=== PATIENT | female | born 1950 | race Caucasian/White ===

== ENCOUNTER → 2017-10-29 | Outpatient (CLI) | payer MEDICARE, OTHER ==
[~2017-10-29] MED LIST: Betamethasone D30 ML EXT; TIMO10T BOTHEYES
[2017-10-29 16:29] LABS: Appearance, Urine Clear (Clear); Bilirubin, Urine Neg (Neg); Blood, Urine 1+ (Neg); Color, Urine Yellow (P-Yellow); Glucose Qualitative, Urine Neg (Neg); Ketones, Urine Neg (Neg); Leukocyte Esterase, Urine Neg (Neg); Nitrite, Urine Neg (Neg); Protein, Urine Neg (Neg); Specific Gravity, Urine 1.015 (1.003-1.022); Urobilinogen, Urine NORM (Normal); pH, Urine 6.5 (5.0-8.0)
[2017-10-29 17:07] LABS: Bacteria Not Seen /hpf; Red Blood Cells, Urine Not Seen /hpf (0-2); Squamous Epithelial Cells Not Seen /hpf (Few); White Blood Cells, Urine Not Seen /hpf (0-5)
== END ==
LOC: LAB 16:20
PROVIDERS: Nurse Practitioner Family
DX: N39.0 Urinary tract infection, site not specified (principal)
CPT/HCPCS: 81001

== ENCOUNTER 2017-11-04 10:08 | Day surgery (SDC) | payer MEDICARE, OTHER ==
[~2017-11-04] VITALS: Ht 157.5 cm; Wt 61.0 kg
== END 2017-11-04 23:00 | disposition home or self-care (01) ==
LOC: MHTC 10:08
DX: I87.2 Venous insufficiency (chronic) (peripheral) (principal); Z88.5 Allergy status to narcotic agent; Z79.899 Other long term (current) drug therapy; E78.00 Pure hypercholesterolemia, unspecified
CPT/HCPCS: 36415; 36475; 85610; 99152; C1769; C1888; C1894; J1644; J2250; J3010; J7030; J7040

== ENCOUNTER 2017-12-01 | Day surgery (SDC) | END 2017-12-01 14:27 | disposition home or self-care (01) ==

== ENCOUNTER 2021-02-13 06:16 | Day surgery (SDC) | payer MEDICARE, OTHER ==
[~2021-02-13] VITALS: Ht 157.5 cm; Wt 64.5 kg
[~2021-02-13 06:16] MED LIST changes: +ATOR20
[2021-02-13] MEDS ORDERED: DICLOFENAC SOD100 G1 TOP (07:09)
[2021-02-13] MEDS ORDERED: SYMBICORT 160-4.6 GM INH (07:10)
[2021-02-13] MEDS ORDERED: ALBU90OI INH (07:10)
--- NOTE | 2021-02-13 07:42 | NUR ---
02/13/21 0742 Karishma Hadley Decadron 10mg given via IV push at 0725. LOT [id number] EXP 06/2022 [facility] [id number]
--- NOTE | 2021-02-13 09:09 | NUR ---
02/13/21 0909 Reggie Sosa PT RESTING ON RECLINER. PT TOLERATING DRINKS, PT KEEPS CLEARING HER THROAT, DR. MAGALLANES AWARE OF PT'S CLEARING THROAT AND MD IS OK WITH IT. VS WNL. PT AWAKE, ALERT, COMMUNICATES CLEARLY. PT DENIES ANY PAIN AT THIS TIME. WILL CONTINUE TO MONITOR.
== END 2021-02-13 09:36 | disposition home or self-care (01) ==
LOC: ORSCSDS 06:16
PROVIDERS: Otolaryngology
PROC: 09TL0ZZ Resection of Nasal Turbinate, Open Approach (ICD-10-PCS; principal; 2021-02-13 07:30)
PROC: 09BM0ZZ Excision of Nasal Septum, Open Approach (ICD-10-PCS; principal; 2021-02-13 07:30)
DX: J34.2 Deviated nasal septum (principal); J34.3 Hypertrophy of nasal turbinates; J45.909 Unspecified asthma, uncomplicated; E78.00 Pure hypercholesterolemia, unspecified; Z79.899 Other long term (current) drug therapy
CPT/HCPCS: J0171; J1100; J2250; J2405; J2704; J3010; J7120

== ENCOUNTER 2023-07-21 09:35 | Emergency (ER) | payer MEDICARE, OTHER ==
[~2023-07-21] VITALS: Ht 154.9 cm; Wt 61.2 kg
[~2023-07-21 09:35] MED LIST changes: +ALBU90OI INH; +DICLOFENAC SOD100 G1 TOP; +SYMBICORT 160-4.6 GM INH
[2023-07-21 09:44] VITALS: BP 162/87
== END 2023-07-21 10:44 | disposition home or self-care (01) ==
LOC: ER 09:35
DX: S00.83XA Contusion of other part of head, initial encounter (principal); S80.12XA Contusion of left lower leg, initial encounter; W22.8XXA Striking against or struck by other objects, initial encounter; Z88.5 Allergy status to narcotic agent; Z91.040 Latex allergy status; Z79.899 Other long term (current) drug therapy
CPT/HCPCS: 70450; 73590; 99283-25

== ENCOUNTER → 2023-10-08 | Outpatient (CLI) | payer MEDICARE, OTHER | LOC: LAB SHORT 16:42 → LAB 16:42 | DX: R30.0 Dysuria (principal) | CPT/HCPCS: 87077; 87086; 87186 ==

== ENCOUNTER → 2024-01-05 | Outpatient (CLI) | payer MEDICARE, OTHER | END | disposition home or self-care (01) | LOC: LAB SHORT 08:15 → LAB 08:15 | DX: N39.0 Urinary tract infection, site not specified (principal) | CPT/HCPCS: 87086 ==

== ENCOUNTER 2024-04-13 04:50 | Emergency (ER) | payer MEDICARE, OTHER ==
[~2024-04-13] VITALS: Ht 157.5 cm; Wt 59.0 kg
[2024-04-13] MEDS ORDERED: Oxymetazoline 0.05% Nasal Relief Spray 15mL BTL ONE (05:05)
[2024-04-13 07:50] VITALS: BP 160/80
== END 2024-04-13 08:09 | disposition home or self-care (01) ==
LOC: ER 04:50
DX: R04.0 Epistaxis (principal); Z88.5 Allergy status to narcotic agent; Z91.040 Latex allergy status; Z79.899 Other long term (current) drug therapy
CPT/HCPCS: 30901; 99283-25; A9270

== ENCOUNTER 2024-04-17 19:41 | Emergency (ER) | payer MEDICARE, OTHER ==
[~2024-04-17] VITALS: Ht 157.5 cm; Wt 59.0 kg
[2024-04-17] MEDS ORDERED: Oxymetazoline 0.05% Nasal Relief Spray 15mL BTL ONE (20:00)
[2024-04-17 21:54] VITALS: BP 116/54
== END 2024-04-17 22:55 | disposition left against medical advice (07) ==
LOC: ER 19:41
DX: Z53.21 Procedure and treatment not carried out due to patient leaving prior to being seen by health care provider (principal)
CPT/HCPCS: 99281; A9270

== ENCOUNTER → 2025-05-24 | Outpatient (CLI) | payer MEDICARE, OTHER ==
[~2025-05-24] MED LIST changes: +Crestor40 MG PO; +FLUT1DIS5; +LATA.005SO BOTHEYES; +MOME.1TO
== END ==
LOC: LAB 10:08 → LAB SHORT 10:08
DX: N39.0 Urinary tract infection, site not specified (principal)
CPT/HCPCS: 87077; 87086; 87186

== ENCOUNTER → 2025-05-31 | Outpatient (CLI) | payer MEDICARE, OTHER | LOC: LAB SHORT 09:03 → LAB 09:03 | DX: N39.0 Urinary tract infection, site not specified (principal) | CPT/HCPCS: 87077; 87086; 87186 ==

== ENCOUNTER 2025-06-09 11:58 | Emergency (ER) | payer MEDICARE, OTHER ==
[~2025-06-09] VITALS: Ht 157.5 cm; Wt 56.7 kg
[2025-06-09] MEDS ORDERED: DiphenhydrAMINE HCl 50 MG/ML 1ML Vial IV ONE (12:10)
[2025-06-09] MEDS ORDERED: PRED20 PO (13:05)
[2025-06-09 13:12] VITALS: BP 122/74
== END 2025-06-09 13:14 | disposition home or self-care (01) ==
LOC: ER 11:58
DX: T63.441A Toxic effect of venom of bees, accidental (unintentional), initial encounter (principal); X58.XXXA Exposure to other specified factors, initial encounter; Z79.899 Other long term (current) drug therapy
CPT/HCPCS: 96374; 96375; 99283-25; J1200; J2919

== ENCOUNTER → 2025-06-27 | Outpatient (CLI) | payer MEDICARE, OTHER ==
[~2025-06-27] MED LIST changes: +PRED20 PO
== END ==
LOC: LAB SHORT 15:58 → LAB 15:58
DX: N39.0 Urinary tract infection, site not specified (principal)
CPT/HCPCS: 87086